=== PATIENT | female | born 1955 ===

== ENCOUNTER 2022-08-27 16:10 | Inpatient (IN) | payer MEDICARE, OTHER ==
[~2022-08-27] VITALS: Ht 162.6 cm; Wt 85.7 kg
[2022-08-27 17:00] VITALS: BP 127/77
[2022-08-27] MEDS ORDERED: MELATONIN 3 MG TABLET PO PRN (17:00)
[2022-08-27] MEDS ORDERED: ACETAMINOPHEN 325 MG TABLET PO PRN (17:00)
[2022-08-27] MEDS ORDERED: ONDANSETRON HCL 4 MG TABLET PO PRN (17:15)
[2022-08-27] MEDS ORDERED: HydrALAZINE HCL 10 MG TABLET PO PRN (17:15)
[2022-08-27] MEDS ORDERED: BISACODYL 10 MG RECTAL RECTAL SUPPOSITORY PR PRN (17:15)
[2022-08-27] MEDS ORDERED: IPRATROPIUM BROMIDE 0.5 MG/2.5 ML NEB SOLUTION NEB PRN (17:15)
[2022-08-27] MEDS ORDERED: ALBUTEROL SULFATE 2.5 MG/0.5 ML NEB SOLUTION NEB PRN (17:15)
[2022-08-27 20:00] VITALS: BP 134/75
[2022-08-27] MEDS: ETHYL ALCOHOL 62% ANTISEPTIC NASAL SANITIZER 0.6 ML AMPUL NASAL SCH (21:50)
[2022-08-27] MEDS: 0.9% SODIUM CHLORIDE 10 ML SYRINGE IVP SCH (21:50)
[2022-08-27] MEDS: DOCUSATE SODIUM 100 MG CAPSULE PO SCH (21:53)
[2022-08-28 07:26] LABS: BASOPHILS % (AUTO) 0.7 % (0.0-2.0); HEMATOCRIT 39.4 % (36-46); HEMOGLOBIN 13.2 g/dL (12.0-16.0); LYMPHOCYTES # (AUTO) 1.6 K/uL (1.0-4.8); LYMPHOCYTES % (AUTO) 25.1 % (22.0-44.0); MEAN CORPUSCULAR HEMOGLOBIN 29.1 pg (26.0-34.0); MEAN CORPUSCULAR HGB CONC 33.6 G/dL (31.0-37.0); MEAN CORPUSCULAR VOLUME 87 fL (80-100); MONOCYTES # (AUTO) 0.4 K/uL (0.1-1.0); MONOCYTES % (AUTO) 6.4 % (2.0-9.0); NEUTROPHILS # (AUTO) 4.1 K/uL (1.8-7.7); NEUTROPHILS % (AUTO) 63.8 % (40.0-70.0); PLATELET COUNT (AUTO) 273 K/uL (150-450); RED BLOOD CELL COUNT(AUTO) 4.54 MIL/uL (4.00-5.20); RED CELL DISTRIBUTION WIDTH 13.1 % (11.5-14.5)
[2022-08-28 07:46] LABS: ALANINE AMINOTRANSFERASE 26 U/L (12-78); ALKALINE PHOSPHATASE 145 U/L (46-116); ANION GAP 7 mmol/L (8-16); ASPARTATE AMINOTRANSFERASE 10 U/L (15-37); BILIRUBIN,TOTAL 0.5 mg/dL (0.1-1.0); CALCIUM, TOTAL 9.5 mg/dL (8.8-10.5); CARBON DIOXIDE 29 mmol/L (22-29); CHLORIDE 103 mmol/L (98-107); GLUCOSE,RANDOM 113 mg/dL (70-110); POTASSIUM 3.9 mmol/L (3.5-5.1); SODIUM SERUM 139 mmol/L (136-145); UREA NITROGEN, BLOOD 18 mg/dL (7-18)
[2022-08-28 07:48] LABS: GLOMERULAR FILTR. RATE CALC > 60 mL/min (>60)
[2022-08-28] MEDS: ETHYL ALCOHOL 62% ANTISEPTIC NASAL SANITIZER 0.6 ML AMPUL NASAL SCH ×2 (07:53→20:55)
[2022-08-28] MEDS: LOSARTAN POTASSIUM 50 MG TABLET PO SCH (07:54)
[2022-08-28] MEDS: ATORVASTATIN CALCIUM 40 MG TABLET PO SCH (07:54)
[2022-08-28] MEDS: PANTOPRAZOLE SODIUM 40 MG DR TABLET PO SCH (07:54)
[2022-08-28] MEDS: 0.9% SODIUM CHLORIDE 10 ML SYRINGE IVP SCH ×2 (07:54→20:55)
[2022-08-28] MEDS: DOCUSATE SODIUM 100 MG CAPSULE PO SCH ×2 (07:54→20:55)
[2022-08-28] MEDS: METOPROLOL SUCCINATE 25 MG ER TABLET PO SCH (07:54)
[2022-08-28 08:55] VITALS: BP 122/70
[2022-08-28 12:00] VITALS: BP 124/64
[2022-08-28 20:02] VITALS: BP 126/67
[2022-08-29] MEDS: ETHYL ALCOHOL 62% ANTISEPTIC NASAL SANITIZER 0.6 ML AMPUL NASAL SCH ×2 (08:32→20:22)
[2022-08-29] MEDS: ATORVASTATIN CALCIUM 40 MG TABLET PO SCH (08:33)
[2022-08-29] MEDS: METOPROLOL SUCCINATE 25 MG ER TABLET PO SCH (08:33)
[2022-08-29] MEDS: LOSARTAN POTASSIUM 50 MG TABLET PO SCH (08:33)
[2022-08-29] MEDS: PANTOPRAZOLE SODIUM 40 MG DR TABLET PO SCH (08:33)
[2022-08-29] MEDS: DOCUSATE SODIUM 100 MG CAPSULE PO SCH ×2 (08:33→20:22)
[2022-08-29 09:11] VITALS: BP 113/71
[2022-08-29 19:59] VITALS: BP 128/84
[2022-08-30 08:00] VITALS: BP 151/78
[2022-08-30 09:00] VITALS: BP 113/75
[2022-08-30] MEDS: ETHYL ALCOHOL 62% ANTISEPTIC NASAL SANITIZER 0.6 ML AMPUL NASAL SCH ×2 (09:13→21:25)
[2022-08-30] MEDS: LOSARTAN POTASSIUM 50 MG TABLET PO SCH (09:14)
[2022-08-30] MEDS: ENOXAPARIN SODIUM 40 MG/0.4 ML PF SYRINGE SQ SCH (09:14)
[2022-08-30] MEDS: METOPROLOL SUCCINATE 25 MG ER TABLET PO SCH (09:14)
[2022-08-30] MEDS: DOCUSATE SODIUM 100 MG CAPSULE PO SCH ×2 (09:14→21:00)
[2022-08-30] MEDS: PANTOPRAZOLE SODIUM 40 MG DR TABLET PO SCH (09:14)
[2022-08-30] MEDS: ATORVASTATIN CALCIUM 40 MG TABLET PO SCH (09:14)
[2022-08-30 10:23] VITALS: BP 151/78
[2022-08-30 20:15] VITALS: BP 128/73
[2022-08-31] MEDS: ATORVASTATIN CALCIUM 40 MG TABLET PO SCH (08:04)
[2022-08-31] MEDS: METOPROLOL SUCCINATE 25 MG ER TABLET PO SCH (08:04)
[2022-08-31] MEDS: LOSARTAN POTASSIUM 50 MG TABLET PO SCH (08:04)
[2022-08-31] MEDS: PANTOPRAZOLE SODIUM 40 MG DR TABLET PO SCH (08:04)
[2022-08-31] MEDS: ENOXAPARIN SODIUM 40 MG/0.4 ML PF SYRINGE SQ SCH (08:05)
[2022-08-31] MEDS: ETHYL ALCOHOL 62% ANTISEPTIC NASAL SANITIZER 0.6 ML AMPUL NASAL SCH ×2 (08:06→20:24)
[2022-08-31] MEDS: DOCUSATE SODIUM 100 MG CAPSULE PO SCH ×2 (08:19→20:24)
[2022-08-31 09:04] VITALS: BP 139/71
[2022-08-31 15:36] LABS: APPEARANCE,URINE HAZY (CLEAR); BILIRUBIN,URINE NEGATIVE (NEGATIVE); GLUCOSE, URINE (UA) NEGATIVE (NEGATIVE); KETONES,URINE NEGATIVE (NEGATIVE); LEUKOCYTE ESTERASE ,URINE LARGE (NEGATIVE); NITRATE,URINE POSITIVE (NEGATIVE); OCCULT BLOOD,URINE NEGATIVE (NEGATIVE); PH,URINE 6.5 (5.0-8.0); PROTEIN,URINE TRACE mg/dL (NEGATIVE); SPECIFIC GRAVITIY, URINE 1.013 (1.003-1.030); UROBILINOGEN,URINE <=1.0 mg/dL (<=1.0)
[2022-08-31 15:44] LABS: BACTERIA,URINE Moderate /HPF (None Seen); RBC,URINE 0-2 /HPF (0-2)
[2022-08-31 15:45] LABS: SQUAMOUS EPITHELIAL CELL,UR None Seen /LPF (None Seen)
[2022-08-31] MEDS: DOCUSATE SODIUM 283 MG/5 ML MINI-ENEMA PR SCH (18:20)
[2022-08-31 22:41] VITALS: BP 143/77
[2022-09-01] MEDS: ATORVASTATIN CALCIUM 40 MG TABLET PO SCH (07:40)
[2022-09-01] MEDS: METOPROLOL SUCCINATE 25 MG ER TABLET PO SCH (07:40)
[2022-09-01] MEDS: DOCUSATE SODIUM 100 MG CAPSULE PO SCH ×2 (07:41→20:27)
[2022-09-01] MEDS: PANTOPRAZOLE SODIUM 40 MG DR TABLET PO SCH (07:41)
[2022-09-01] MEDS: LOSARTAN POTASSIUM 50 MG TABLET PO SCH (07:41)
[2022-09-01] MEDS: ENOXAPARIN SODIUM 40 MG/0.4 ML PF SYRINGE SQ SCH (07:42)
[2022-09-01] MEDS: ETHYL ALCOHOL 62% ANTISEPTIC NASAL SANITIZER 0.6 ML AMPUL NASAL SCH ×2 (08:39→20:27)
[2022-09-01 09:05] VITALS: BP 128/83
[2022-09-01] MEDS: DOCUSATE SODIUM 283 MG/5 ML MINI-ENEMA PR SCH (18:50)
[2022-09-01 20:00] VITALS: BP 144/84
[2022-09-02 08:30] VITALS: BP 137/73
[2022-09-02 09:10] VITALS: BP 137/73
[2022-09-02] MEDS: METOPROLOL SUCCINATE 25 MG ER TABLET PO SCH (09:32)
[2022-09-02] MEDS: ETHYL ALCOHOL 62% ANTISEPTIC NASAL SANITIZER 0.6 ML AMPUL NASAL SCH ×2 (09:32→20:22)
[2022-09-02] MEDS: PANTOPRAZOLE SODIUM 40 MG DR TABLET PO SCH (09:32)
[2022-09-02] MEDS: LOSARTAN POTASSIUM 50 MG TABLET PO SCH (09:32)
[2022-09-02] MEDS: DOCUSATE SODIUM 100 MG CAPSULE PO SCH ×2 (09:33→20:23)
[2022-09-02] MEDS: ATORVASTATIN CALCIUM 40 MG TABLET PO SCH (09:33)
[2022-09-02] MEDS: ENOXAPARIN SODIUM 40 MG/0.4 ML PF SYRINGE SQ SCH (09:33)
[2022-09-02] MEDS: DOCUSATE SODIUM 283 MG/5 ML MINI-ENEMA PR SCH (19:24)
[2022-09-02 21:03] VITALS: BP 149/87
[2022-09-03] MEDS: ETHYL ALCOHOL 62% ANTISEPTIC NASAL SANITIZER 0.6 ML AMPUL NASAL SCH ×2 (08:45→20:37)
[2022-09-03] MEDS: METOPROLOL SUCCINATE 25 MG ER TABLET PO SCH (08:45)
[2022-09-03] MEDS: LOSARTAN POTASSIUM 50 MG TABLET PO SCH (08:46)
[2022-09-03] MEDS: ENOXAPARIN SODIUM 40 MG/0.4 ML PF SYRINGE SQ SCH (08:46)
[2022-09-03] MEDS: PANTOPRAZOLE SODIUM 40 MG DR TABLET PO SCH (08:46)
[2022-09-03] MEDS: ATORVASTATIN CALCIUM 40 MG TABLET PO SCH (08:46)
[2022-09-03] MEDS: DOCUSATE SODIUM 100 MG CAPSULE PO SCH ×2 (08:47→20:37)
[2022-09-03 09:15] VITALS: BP 154/76
[2022-09-03] MEDS: NITROFURANTOIN MONOHYD/M-CRYST 100 MG CAPSULE [MACROBID] PO SCH ×2 (11:32→20:37)
[2022-09-03 21:05] VITALS: BP 133/83
[2022-09-04] MEDS: DOCUSATE SODIUM 100 MG CAPSULE PO SCH ×3 (09:27→21:47)
[2022-09-04] MEDS: ETHYL ALCOHOL 62% ANTISEPTIC NASAL SANITIZER 0.6 ML AMPUL NASAL SCH ×3 (09:27→21:47)
[2022-09-04] MEDS: PANTOPRAZOLE SODIUM 40 MG DR TABLET PO SCH (09:28)
[2022-09-04] MEDS: ATORVASTATIN CALCIUM 40 MG TABLET PO SCH (09:28)
[2022-09-04] MEDS: NITROFURANTOIN MONOHYD/M-CRYST 100 MG CAPSULE [MACROBID] PO SCH ×3 (09:28→21:47)
[2022-09-04] MEDS: LOSARTAN POTASSIUM 50 MG TABLET PO SCH (09:28)
[2022-09-04] MEDS: ENOXAPARIN SODIUM 40 MG/0.4 ML PF SYRINGE SQ SCH (09:29)
[2022-09-04] MEDS: METOPROLOL SUCCINATE 25 MG ER TABLET PO SCH (09:29)
[2022-09-04 10:04] VITALS: BP 149/88
[2022-09-04 20:27] VITALS: BP 130/72
[2022-09-04] MEDS: DOCUSATE SODIUM 283 MG/5 ML MINI-ENEMA PR PRN ×2 (21:37→21:48)
[2022-09-05 08:05] VITALS: BP 122/70
[2022-09-05] MEDS: NITROFURANTOIN MONOHYD/M-CRYST 100 MG CAPSULE [MACROBID] PO SCH ×2 (08:39→20:56)
[2022-09-05] MEDS: DOCUSATE SODIUM 100 MG CAPSULE PO SCH ×2 (08:39→20:56)
[2022-09-05] MEDS: ATORVASTATIN CALCIUM 40 MG TABLET PO SCH (08:39)
[2022-09-05] MEDS: ETHYL ALCOHOL 62% ANTISEPTIC NASAL SANITIZER 0.6 ML AMPUL NASAL SCH ×2 (08:40→20:56)
[2022-09-05] MEDS: LOSARTAN POTASSIUM 50 MG TABLET PO SCH (08:40)
[2022-09-05] MEDS: METOPROLOL SUCCINATE 25 MG ER TABLET PO SCH (08:40)
[2022-09-05] MEDS: ENOXAPARIN SODIUM 40 MG/0.4 ML PF SYRINGE SQ SCH (08:42)
[2022-09-05] MEDS: PANTOPRAZOLE SODIUM 40 MG DR TABLET PO SCH (10:39)
[2022-09-05] MEDS: DOCUSATE SODIUM 283 MG/5 ML MINI-ENEMA PR SCH (18:08)
[2022-09-05 21:18] VITALS: BP 145/77
[2022-09-06] MEDS: NITROFURANTOIN MONOHYD/M-CRYST 100 MG CAPSULE [MACROBID] PO SCH ×2 (07:56→20:25)
[2022-09-06 08:05] VITALS: BP 134/73
[2022-09-06] MEDS: ENOXAPARIN SODIUM 40 MG/0.4 ML PF SYRINGE SQ SCH (08:27)
[2022-09-06] MEDS: ETHYL ALCOHOL 62% ANTISEPTIC NASAL SANITIZER 0.6 ML AMPUL NASAL SCH ×2 (08:27→20:25)
[2022-09-06] MEDS: ATORVASTATIN CALCIUM 40 MG TABLET PO SCH (08:28)
[2022-09-06] MEDS: LOSARTAN POTASSIUM 50 MG TABLET PO SCH (08:28)
[2022-09-06] MEDS: DOCUSATE SODIUM 100 MG CAPSULE PO SCH ×2 (08:28→20:25)
[2022-09-06] MEDS: METOPROLOL SUCCINATE 25 MG ER TABLET PO SCH (08:28)
[2022-09-06] MEDS: PANTOPRAZOLE SODIUM 40 MG DR TABLET PO SCH (09:56)
[2022-09-06] MEDS: DOCUSATE SODIUM 283 MG/5 ML MINI-ENEMA PR SCH (18:18)
[2022-09-06 20:10] VITALS: BP 127/62
[2022-09-07] MEDS: NITROFURANTOIN MONOHYD/M-CRYST 100 MG CAPSULE [MACROBID] PO SCH ×2 (08:00→20:44)
[2022-09-07 08:02] VITALS: BP 135/76
[2022-09-07] MEDS: DOCUSATE SODIUM 100 MG CAPSULE PO SCH ×2 (08:20→20:44)
[2022-09-07] MEDS: ATORVASTATIN CALCIUM 40 MG TABLET PO SCH (08:20)
[2022-09-07] MEDS: ETHYL ALCOHOL 62% ANTISEPTIC NASAL SANITIZER 0.6 ML AMPUL NASAL SCH ×2 (08:20→20:44)
[2022-09-07] MEDS: ENOXAPARIN SODIUM 40 MG/0.4 ML PF SYRINGE SQ SCH (08:20)
[2022-09-07] MEDS: LOSARTAN POTASSIUM 50 MG TABLET PO SCH (08:20)
[2022-09-07] MEDS: METOPROLOL SUCCINATE 25 MG ER TABLET PO SCH (08:21)
[2022-09-07] MEDS: PANTOPRAZOLE SODIUM 40 MG DR TABLET PO SCH (10:00)
[2022-09-07] MEDS: DOCUSATE SODIUM 283 MG/5 ML MINI-ENEMA PR SCH (18:25)
[2022-09-07 20:10] VITALS: BP 116/66
[2022-09-08] MEDS: METOPROLOL SUCCINATE 25 MG ER TABLET PO SCH (08:09)
[2022-09-08] MEDS: ATORVASTATIN CALCIUM 40 MG TABLET PO SCH (08:09)
[2022-09-08] MEDS: PANTOPRAZOLE SODIUM 40 MG DR TABLET PO SCH (08:09)
[2022-09-08] MEDS: ETHYL ALCOHOL 62% ANTISEPTIC NASAL SANITIZER 0.6 ML AMPUL NASAL SCH ×2 (08:09→21:30)
[2022-09-08] MEDS: LOSARTAN POTASSIUM 50 MG TABLET PO SCH (08:09)
[2022-09-08] MEDS: DOCUSATE SODIUM 100 MG CAPSULE PO SCH ×2 (08:09→21:30)
[2022-09-08] MEDS: NITROFURANTOIN MONOHYD/M-CRYST 100 MG CAPSULE [MACROBID] PO SCH ×2 (08:09→21:30)
[2022-09-08] MEDS: ENOXAPARIN SODIUM 40 MG/0.4 ML PF SYRINGE SQ SCH (08:09)
[2022-09-08 08:45] VITALS: BP 119/67
[2022-09-08] MEDS: DOCUSATE SODIUM 283 MG/5 ML MINI-ENEMA PR SCH (18:00)
[2022-09-08 21:00] VITALS: BP 135/70
[2022-09-09 07:50] VITALS: BP 131/89
[2022-09-09] MEDS: DOCUSATE SODIUM 100 MG CAPSULE PO SCH ×2 (07:57→20:22)
[2022-09-09] MEDS: ETHYL ALCOHOL 62% ANTISEPTIC NASAL SANITIZER 0.6 ML AMPUL NASAL SCH ×2 (07:57→20:22)
[2022-09-09] MEDS: ENOXAPARIN SODIUM 40 MG/0.4 ML PF SYRINGE SQ SCH (07:58)
[2022-09-09] MEDS: LOSARTAN POTASSIUM 50 MG TABLET PO SCH (07:58)
[2022-09-09] MEDS: ATORVASTATIN CALCIUM 40 MG TABLET PO SCH (07:58)
[2022-09-09] MEDS: METOPROLOL SUCCINATE 25 MG ER TABLET PO SCH (07:58)
[2022-09-09] MEDS: PANTOPRAZOLE SODIUM 40 MG DR TABLET PO SCH (07:58)
[2022-09-09] MEDS: NITROFURANTOIN MONOHYD/M-CRYST 100 MG CAPSULE [MACROBID] PO SCH ×2 (07:58→20:22)
[2022-09-09] MEDS: DOCUSATE SODIUM 283 MG/5 ML MINI-ENEMA PR SCH (18:13)
[2022-09-09 20:01] VITALS: BP 140/71
[2022-09-10 07:07] LABS: BASOPHILS % (AUTO) 0.6 % (0.0-2.0); EOSINOPHILS % (AUTO) 7.7 % (1.0-6.0); HEMOGLOBIN 12.6 g/dL (12.0-16.0); LYMPHOCYTES # (AUTO) 1.5 K/uL (1.0-4.8); LYMPHOCYTES % (AUTO) 28.2 % (22.0-44.0); MEAN CORPUSCULAR HEMOGLOBIN 28.9 pg (26.0-34.0); MEAN CORPUSCULAR VOLUME 85 fL (80-100); MONOCYTES # (AUTO) 0.3 K/uL (0.1-1.0); MONOCYTES % (AUTO) 6.6 % (2.0-9.0); NEUTROPHILS % (AUTO) 56.9 % (40.0-70.0); PLATELET COUNT (AUTO) 225 K/uL (150-450); RED BLOOD CELL COUNT(AUTO) 4.35 MIL/uL (4.00-5.20); RED CELL DISTRIBUTION WIDTH 13.2 % (11.5-14.5)
[2022-09-10 07:27] LABS: ANION GAP 4 mmol/L (8-16); CALCIUM, TOTAL 9.8 mg/dL (8.8-10.5); CARBON DIOXIDE 30 mmol/L (22-29); CHLORIDE 104 mmol/L (98-107); CREATININE 0.55 mg/dL (0.60-1.30); GLUCOSE,RANDOM 103 mg/dL (70-110); POTASSIUM 3.7 mmol/L (3.5-5.1); SODIUM SERUM 138 mmol/L (136-145); UREA NITROGEN, BLOOD 15 mg/dL (7-18)
[2022-09-10 07:28] LABS: GLOMERULAR FILTR. RATE CALC > 60 mL/min (>60)
[2022-09-10 07:45] VITALS: BP 131/73
[2022-09-10] MEDS: DOCUSATE SODIUM 100 MG CAPSULE PO SCH ×2 (07:54→20:55)
[2022-09-10] MEDS: LOSARTAN POTASSIUM 50 MG TABLET PO SCH (07:54)
[2022-09-10] MEDS: ATORVASTATIN CALCIUM 40 MG TABLET PO SCH (07:54)
[2022-09-10] MEDS: ETHYL ALCOHOL 62% ANTISEPTIC NASAL SANITIZER 0.6 ML AMPUL NASAL SCH ×2 (07:54→20:55)
[2022-09-10] MEDS: PANTOPRAZOLE SODIUM 40 MG DR TABLET PO SCH (07:55)
[2022-09-10] MEDS: METOPROLOL SUCCINATE 25 MG ER TABLET PO SCH (07:55)
[2022-09-10] MEDS: ENOXAPARIN SODIUM 40 MG/0.4 ML PF SYRINGE SQ SCH (07:55)
[2022-09-10] MEDS: NITROFURANTOIN MONOHYD/M-CRYST 100 MG CAPSULE [MACROBID] PO SCH (07:55)
[2022-09-10] MEDS: DOCUSATE SODIUM 283 MG/5 ML MINI-ENEMA PR SCH (18:00)
[2022-09-10 20:01] VITALS: BP 127/70
[2022-09-11 08:57] VITALS: BP 136/79
[2022-09-11] MEDS: DOCUSATE SODIUM 100 MG CAPSULE PO SCH ×2 (09:39→21:00)
[2022-09-11] MEDS: ATORVASTATIN CALCIUM 40 MG TABLET PO SCH (09:39)
[2022-09-11] MEDS: ENOXAPARIN SODIUM 40 MG/0.4 ML PF SYRINGE SQ SCH (09:39)
[2022-09-11] MEDS: ETHYL ALCOHOL 62% ANTISEPTIC NASAL SANITIZER 0.6 ML AMPUL NASAL SCH ×2 (09:39→20:59)
[2022-09-11] MEDS: PANTOPRAZOLE SODIUM 40 MG DR TABLET PO SCH (09:39)
[2022-09-11] MEDS: METOPROLOL SUCCINATE 25 MG ER TABLET PO SCH (09:39)
[2022-09-11] MEDS: LOSARTAN POTASSIUM 50 MG TABLET PO SCH (09:40)
[2022-09-11] MEDS: DOCUSATE SODIUM 283 MG/5 ML MINI-ENEMA PR SCH (18:00)
[2022-09-11 21:04] VITALS: BP 132/68
[2022-09-12] MEDS: DOCUSATE SODIUM 100 MG CAPSULE PO SCH ×2 (09:00→21:07)
[2022-09-12] MEDS: ETHYL ALCOHOL 62% ANTISEPTIC NASAL SANITIZER 0.6 ML AMPUL NASAL SCH ×2 (09:37→21:08)
[2022-09-12] MEDS: ENOXAPARIN SODIUM 40 MG/0.4 ML PF SYRINGE SQ SCH (09:37)
[2022-09-12] MEDS: METOPROLOL SUCCINATE 25 MG ER TABLET PO SCH (09:38)
[2022-09-12] MEDS: LOSARTAN POTASSIUM 50 MG TABLET PO SCH (09:38)
[2022-09-12] MEDS: PANTOPRAZOLE SODIUM 40 MG DR TABLET PO SCH (09:39)
[2022-09-12] MEDS: ATORVASTATIN CALCIUM 40 MG TABLET PO SCH (09:39)
[2022-09-12 10:46] VITALS: BP 127/78
[2022-09-12] MEDS ORDERED: MICONAZOLE NITRATE 100 MG VG SCH (12:30)
[2022-09-12 16:28] LABS: APPEARANCE,URINE HAZY (CLEAR); BILIRUBIN,URINE NEGATIVE (NEGATIVE); GLUCOSE, URINE (UA) NEGATIVE (NEGATIVE); KETONES,URINE NEGATIVE (NEGATIVE); LEUKOCYTE ESTERASE ,URINE LARGE (NEGATIVE); NITRATE,URINE NEGATIVE (NEGATIVE); OCCULT BLOOD,URINE SMALL (NEGATIVE); PH,URINE 6.5 (5.0-8.0); PROTEIN,URINE 30-70 mg/dL (NEGATIVE); SPECIFIC GRAVITIY, URINE 1.019 (1.003-1.030); UROBILINOGEN,URINE <=1.0 mg/dL (<=1.0)
[2022-09-12 16:48] LABS: BACTERIA,URINE Few /HPF (None Seen); SQUAMOUS EPITHELIAL CELL,UR Few /LPF (None Seen); WBC,URINE 26-50 /HPF (0-5)
[2022-09-12] MEDS: MICONAZOLE NITRATE 2% 45 GM VAGINAL CREAM VG SCH (16:55)
[2022-09-12] MEDS: DOCUSATE SODIUM 283 MG/5 ML MINI-ENEMA PR SCH (18:00)
[2022-09-12 20:00] VITALS: BP 111/61
[2022-09-13 08:20] VITALS: BP 135/80
[2022-09-13] MEDS: DOCUSATE SODIUM 100 MG CAPSULE PO SCH ×2 (09:30→20:50)
[2022-09-13] MEDS: LOSARTAN POTASSIUM 50 MG TABLET PO SCH (09:30)
[2022-09-13] MEDS: PANTOPRAZOLE SODIUM 40 MG DR TABLET PO SCH (09:30)
[2022-09-13] MEDS: ATORVASTATIN CALCIUM 40 MG TABLET PO SCH (09:30)
[2022-09-13] MEDS: METOPROLOL SUCCINATE 25 MG ER TABLET PO SCH (09:30)
[2022-09-13] MEDS: ETHYL ALCOHOL 62% ANTISEPTIC NASAL SANITIZER 0.6 ML AMPUL NASAL SCH ×2 (09:30→20:50)
[2022-09-13] MEDS: ENOXAPARIN SODIUM 40 MG/0.4 ML PF SYRINGE SQ SCH (09:30)
[2022-09-13] MEDS: MICONAZOLE NITRATE 2% 45 GM VAGINAL CREAM VG SCH (09:31)
[2022-09-13] MEDS: DOCUSATE SODIUM 283 MG/5 ML MINI-ENEMA PR SCH ×2 (18:00→20:51)
[2022-09-13 20:00] VITALS: BP 120/77
[2022-09-14 08:01] VITALS: BP 152/81
[2022-09-14] MEDS: ENOXAPARIN SODIUM 40 MG/0.4 ML PF SYRINGE SQ SCH (08:04)
[2022-09-14] MEDS: MICONAZOLE NITRATE 2% 45 GM VAGINAL CREAM VG SCH (08:04)
[2022-09-14] MEDS: ETHYL ALCOHOL 62% ANTISEPTIC NASAL SANITIZER 0.6 ML AMPUL NASAL SCH ×2 (08:04→21:48)
[2022-09-14] MEDS: PANTOPRAZOLE SODIUM 40 MG DR TABLET PO SCH (08:04)
[2022-09-14] MEDS: ATORVASTATIN CALCIUM 40 MG TABLET PO SCH (08:04)
[2022-09-14] MEDS: METOPROLOL SUCCINATE 25 MG ER TABLET PO SCH (08:04)
[2022-09-14] MEDS: DOCUSATE SODIUM 100 MG CAPSULE PO SCH ×3 (08:04→21:48)
[2022-09-14] MEDS: LOSARTAN POTASSIUM 50 MG TABLET PO SCH (08:04)
[2022-09-14] MEDS: DOCUSATE SODIUM 283 MG/5 ML MINI-ENEMA PR SCH (18:00)
[2022-09-14 20:10] VITALS: BP 135/58
[2022-09-15 08:05] VITALS: BP 131/64
[2022-09-15] MEDS: DOCUSATE SODIUM 100 MG CAPSULE PO SCH ×2 (08:58→21:00)
[2022-09-15] MEDS: LOSARTAN POTASSIUM 50 MG TABLET PO SCH (08:58)
[2022-09-15] MEDS: ETHYL ALCOHOL 62% ANTISEPTIC NASAL SANITIZER 0.6 ML AMPUL NASAL SCH ×2 (08:58→21:19)
[2022-09-15] MEDS: METOPROLOL SUCCINATE 25 MG ER TABLET PO SCH (08:58)
[2022-09-15] MEDS: ATORVASTATIN CALCIUM 40 MG TABLET PO SCH (08:58)
[2022-09-15] MEDS: ENOXAPARIN SODIUM 40 MG/0.4 ML PF SYRINGE SQ SCH (08:58)
[2022-09-15] MEDS: PANTOPRAZOLE SODIUM 40 MG DR TABLET PO SCH (08:59)
[2022-09-15] MEDS: MICONAZOLE NITRATE 2% 45 GM VAGINAL CREAM VG SCH (08:59)
[2022-09-15] MEDS: DOCUSATE SODIUM 283 MG/5 ML MINI-ENEMA PR SCH (18:15)
[2022-09-15 20:01] VITALS: BP 127/59
[2022-09-16 07:45] VITALS: BP 122/63
[2022-09-16] MEDS: DOCUSATE SODIUM 100 MG CAPSULE PO SCH ×2 (08:21→20:17)
[2022-09-16] MEDS: ETHYL ALCOHOL 62% ANTISEPTIC NASAL SANITIZER 0.6 ML AMPUL NASAL SCH ×2 (08:21→20:17)
[2022-09-16] MEDS: METOPROLOL SUCCINATE 25 MG ER TABLET PO SCH (08:22)
[2022-09-16] MEDS: ATORVASTATIN CALCIUM 40 MG TABLET PO SCH (08:22)
[2022-09-16] MEDS: MICONAZOLE NITRATE 2% 45 GM VAGINAL CREAM VG SCH (08:22)
[2022-09-16] MEDS: PANTOPRAZOLE SODIUM 40 MG DR TABLET PO SCH (08:22)
[2022-09-16] MEDS: LOSARTAN POTASSIUM 50 MG TABLET PO SCH (08:22)
[2022-09-16] MEDS: ENOXAPARIN SODIUM 40 MG/0.4 ML PF SYRINGE SQ SCH (08:22)
[2022-09-16] MEDS: DOCUSATE SODIUM 283 MG/5 ML MINI-ENEMA PR SCH (17:51)
[2022-09-16 20:01] VITALS: BP 113/60
[2022-09-17 07:30] VITALS: BP 149/76
[2022-09-17] MEDS: ETHYL ALCOHOL 62% ANTISEPTIC NASAL SANITIZER 0.6 ML AMPUL NASAL SCH ×2 (08:03→22:17)
[2022-09-17] MEDS: ENOXAPARIN SODIUM 40 MG/0.4 ML PF SYRINGE SQ SCH (08:03)
[2022-09-17] MEDS: DOCUSATE SODIUM 100 MG CAPSULE PO SCH ×2 (08:04→22:09)
[2022-09-17] MEDS: METOPROLOL SUCCINATE 25 MG ER TABLET PO SCH (08:04)
[2022-09-17] MEDS: LOSARTAN POTASSIUM 50 MG TABLET PO SCH (08:04)
[2022-09-17] MEDS: ATORVASTATIN CALCIUM 40 MG TABLET PO SCH (08:04)
[2022-09-17] MEDS: PANTOPRAZOLE SODIUM 40 MG DR TABLET PO SCH (08:05)
[2022-09-17] MEDS: MICONAZOLE NITRATE 2% 45 GM VAGINAL CREAM VG SCH (08:06)
[2022-09-17 08:30] VITALS: BP 149/76
[2022-09-17] MEDS: SULFAMETHOX/TRIMETH DS 800-160 MG/TABLET PO SCH ×2 (12:37→22:09)
[2022-09-17 14:41] LABS: APPEARANCE,URINE TURBID (CLEAR); BILIRUBIN,URINE NEGATIVE (NEGATIVE); GLUCOSE, URINE (UA) NEGATIVE (NEGATIVE); KETONES,URINE NEGATIVE (NEGATIVE); LEUKOCYTE ESTERASE ,URINE LARGE (NEGATIVE); NITRATE,URINE NEGATIVE (NEGATIVE); OCCULT BLOOD,URINE MODERATE (NEGATIVE); PH,URINE 6.5 (5.0-8.0); PROTEIN,URINE 30-70 mg/dL (NEGATIVE); SPECIFIC GRAVITIY, URINE 1.014 (1.003-1.030); UROBILINOGEN,URINE <=1.0 mg/dL (<=1.0)
[2022-09-17 14:54] LABS: WBC,URINE Full Field /HPF (0-5)
[2022-09-17 14:56] LABS: BACTERIA,URINE Many /HPF (None Seen)
[2022-09-17 14:57] LABS: RBC,URINE 0-2 /HPF (0-2)
[2022-09-17] MEDS: DOCUSATE SODIUM 283 MG/5 ML MINI-ENEMA PR SCH (18:00)
[2022-09-17 20:00] VITALS: BP 137/66
[2022-09-18 08:05] VITALS: BP 120/68
[2022-09-18] MEDS: ETHYL ALCOHOL 62% ANTISEPTIC NASAL SANITIZER 0.6 ML AMPUL NASAL SCH ×2 (08:24→21:05)
[2022-09-18] MEDS: ENOXAPARIN SODIUM 40 MG/0.4 ML PF SYRINGE SQ SCH (08:24)
[2022-09-18] MEDS: METOPROLOL SUCCINATE 25 MG ER TABLET PO SCH (08:26)
[2022-09-18] MEDS: LOSARTAN POTASSIUM 50 MG TABLET PO SCH (08:26)
[2022-09-18] MEDS: ATORVASTATIN CALCIUM 40 MG TABLET PO SCH (08:26)
[2022-09-18] MEDS: PANTOPRAZOLE SODIUM 40 MG DR TABLET PO SCH (08:26)
[2022-09-18] MEDS: SULFAMETHOX/TRIMETH DS 800-160 MG/TABLET PO SCH ×2 (08:27→21:05)
[2022-09-18] MEDS: MICONAZOLE NITRATE 2% 45 GM VAGINAL CREAM VG SCH (08:27)
[2022-09-18] MEDS: DOCUSATE SODIUM 100 MG CAPSULE PO SCH ×2 (08:27→21:05)
[2022-09-18] MEDS: DOCUSATE SODIUM 283 MG/5 ML MINI-ENEMA PR SCH (18:00)
[2022-09-18 19:30] VITALS: BP 122/72
[2022-09-19 07:45] VITALS: BP 125/70
[2022-09-19] MEDS: SULFAMETHOX/TRIMETH DS 800-160 MG/TABLET PO SCH ×2 (07:48→20:26)
[2022-09-19] MEDS: ETHYL ALCOHOL 62% ANTISEPTIC NASAL SANITIZER 0.6 ML AMPUL NASAL SCH ×2 (07:48→20:26)
[2022-09-19] MEDS: ATORVASTATIN CALCIUM 40 MG TABLET PO SCH (07:50)
[2022-09-19] MEDS: METOPROLOL SUCCINATE 25 MG ER TABLET PO SCH (07:50)
[2022-09-19] MEDS: DOCUSATE SODIUM 100 MG CAPSULE PO SCH ×2 (07:50→20:26)
[2022-09-19] MEDS: PANTOPRAZOLE SODIUM 40 MG DR TABLET PO SCH (07:50)
[2022-09-19] MEDS: LOSARTAN POTASSIUM 50 MG TABLET PO SCH (07:50)
[2022-09-19] MEDS: ENOXAPARIN SODIUM 40 MG/0.4 ML PF SYRINGE SQ SCH (07:51)
[2022-09-19] MEDS: MICONAZOLE NITRATE 2% 45 GM VAGINAL CREAM VG SCH (07:51)
[2022-09-19 09:40] VITALS: BP 107/62
[2022-09-19 10:37] VITALS: BP 107/62
[2022-09-19 14:00] VITALS: BP 106/55
[2022-09-19 17:00] VITALS: BP 100/59
[2022-09-19] MEDS: DOCUSATE SODIUM 283 MG/5 ML MINI-ENEMA PR SCH (18:00)
[2022-09-19 20:05] VITALS: BP 105/52
[2022-09-20 08:20] VITALS: BP 119/60
[2022-09-20] MEDS: PANTOPRAZOLE SODIUM 40 MG DR TABLET PO SCH (09:20)
[2022-09-20] MEDS: ENOXAPARIN SODIUM 40 MG/0.4 ML PF SYRINGE SQ SCH (09:20)
[2022-09-20] MEDS: DOCUSATE SODIUM 100 MG CAPSULE PO SCH ×2 (09:20→20:15)
[2022-09-20] MEDS: METOPROLOL SUCCINATE 25 MG ER TABLET PO SCH (09:20)
[2022-09-20] MEDS: LOSARTAN POTASSIUM 50 MG TABLET PO SCH (09:20)
[2022-09-20] MEDS: ATORVASTATIN CALCIUM 40 MG TABLET PO SCH (09:21)
[2022-09-20] MEDS: ETHYL ALCOHOL 62% ANTISEPTIC NASAL SANITIZER 0.6 ML AMPUL NASAL SCH ×2 (09:21→20:15)
[2022-09-20] MEDS: SULFAMETHOX/TRIMETH DS 800-160 MG/TABLET PO SCH ×2 (09:22→20:15)
[2022-09-20] MEDS: DOCUSATE SODIUM 283 MG/5 ML MINI-ENEMA PR SCH (18:00)
[2022-09-20 20:01] VITALS: BP 118/65
[2022-09-21] MEDS ORDERED: METO25XL PO ×2 (01:12→14:42)
[2022-09-21] MEDS ORDERED: DOCU-385 PO ×2 (01:12→14:42)
[2022-09-21] MEDS ORDERED: ATOR40TA28 PO (01:12)
[2022-09-21] MEDS ORDERED: PANT-31 PO (01:12)
[2022-09-21] MEDS ORDERED: SULF-261 PO ×2 (01:12→14:42)
[2022-09-21] MEDS ORDERED: LOSA-382 PO ×2 (01:12→14:42)
[2022-09-21 07:37] LABS: BASOPHILS % (AUTO) 0.8 % (0.0-2.0); EOSINOPHILS % (AUTO) 5.5 % (1.0-6.0); HEMATOCRIT 38.9 % (36-46); HEMOGLOBIN 13.3 g/dL (12.0-16.0); LYMPHOCYTES # (AUTO) 1.7 K/uL (1.0-4.8); LYMPHOCYTES % (AUTO) 32.8 % (22.0-44.0); MEAN CORPUSCULAR HEMOGLOBIN 29.4 pg (26.0-34.0); MEAN CORPUSCULAR HGB CONC 34.1 G/dL (31.0-37.0); MEAN CORPUSCULAR VOLUME 86 fL (80-100); MONOCYTES # (AUTO) 0.4 K/uL (0.1-1.0); MONOCYTES % (AUTO) 7.6 % (2.0-9.0); NEUTROPHILS # (AUTO) 2.8 K/uL (1.8-7.7); NEUTROPHILS % (AUTO) 53.3 % (40.0-70.0); PLATELET COUNT (AUTO) 233 K/uL (150-450); RED BLOOD CELL COUNT(AUTO) 4.51 MIL/uL (4.00-5.20); RED CELL DISTRIBUTION WIDTH 13.1 % (11.5-14.5)
[2022-09-21 07:50] VITALS: BP 138/71
[2022-09-21 07:50] LABS: ANION GAP 5 mmol/L (8-16); CALCIUM, TOTAL 10.2 mg/dL (8.8-10.5); CARBON DIOXIDE 28 mmol/L (22-29); CHLORIDE 104 mmol/L (98-107); CREATININE 0.65 mg/dL (0.60-1.30); GLUCOSE,RANDOM 107 mg/dL (70-110); POTASSIUM 4.3 mmol/L (3.5-5.1); SODIUM SERUM 137 mmol/L (136-145); UREA NITROGEN, BLOOD 18 mg/dL (7-18)
[2022-09-21 07:51] LABS: GLOMERULAR FILTR. RATE CALC > 60 mL/min (>60)
[2022-09-21] MEDS: ETHYL ALCOHOL 62% ANTISEPTIC NASAL SANITIZER 0.6 ML AMPUL NASAL SCH ×2 (08:16→20:33)
[2022-09-21] MEDS: SULFAMETHOX/TRIMETH DS 800-160 MG/TABLET PO SCH ×2 (08:17→20:33)
[2022-09-21] MEDS: PANTOPRAZOLE SODIUM 40 MG DR TABLET PO SCH (08:17)
[2022-09-21] MEDS: LOSARTAN POTASSIUM 50 MG TABLET PO SCH (08:17)
[2022-09-21] MEDS: METOPROLOL SUCCINATE 25 MG ER TABLET PO SCH (08:17)
[2022-09-21] MEDS: DOCUSATE SODIUM 100 MG CAPSULE PO SCH ×2 (08:17→20:34)
[2022-09-21] MEDS: ATORVASTATIN CALCIUM 40 MG TABLET PO SCH (08:17)
[2022-09-21] MEDS: ENOXAPARIN SODIUM 40 MG/0.4 ML PF SYRINGE SQ SCH (08:18)
[2022-09-21] MEDS ORDERED: FAMO-136 PO (14:42)
[2022-09-21] MEDS ORDERED: ATOR40TA71 PO (14:42)
[2022-09-21] MEDS: DOCUSATE SODIUM 283 MG/5 ML MINI-ENEMA PR SCH (18:00)
[2022-09-21 20:30] VITALS: BP 102/62
[2022-09-22 08:05] VITALS: BP 139/72
[2022-09-22] MEDS: PANTOPRAZOLE SODIUM 40 MG DR TABLET PO SCH (08:50)
[2022-09-22] MEDS: ATORVASTATIN CALCIUM 40 MG TABLET PO SCH (08:50)
[2022-09-22] MEDS: DOCUSATE SODIUM 100 MG CAPSULE PO SCH (08:50)
[2022-09-22] MEDS: METOPROLOL SUCCINATE 25 MG ER TABLET PO SCH (08:50)
[2022-09-22] MEDS: SULFAMETHOX/TRIMETH DS 800-160 MG/TABLET PO SCH (08:50)
[2022-09-22] MEDS: ETHYL ALCOHOL 62% ANTISEPTIC NASAL SANITIZER 0.6 ML AMPUL NASAL SCH (08:50)
[2022-09-22] MEDS: ENOXAPARIN SODIUM 40 MG/0.4 ML PF SYRINGE SQ SCH (08:51)
[2022-09-22] MEDS ORDERED: LOSARTAN POTASSIUM 25 MG TABLET PO SCH (09:00)
== END 2022-09-22 16:45 | disposition home health service (06) | DRG 57 ==
LOC: 2WR 16:10
PROVIDERS: ADMIT Physical Medicine & Rehabilitation; ATTEND Physical Medicine & Rehabilitation
DX: G81.91 Hemiplegia, unspecified affecting right dominant side (principal); I62.9 Nontraumatic intracranial hemorrhage, unspecified; E46 Unspecified protein-calorie malnutrition; K59.2 Neurogenic bowel, not elsewhere classified; R47.01 Aphasia; E66.9 Obesity, unspecified; E03.9 Hypothyroidism, unspecified; B96.20 Unspecified Escherichia coli [E. coli] as the cause of diseases classified elsewhere; I10 Essential (primary) hypertension; E78.5 Hyperlipidemia, unspecified; N31.9 Neuromuscular dysfunction of bladder, unspecified; R48.2 Apraxia; K59.00 Constipation, unspecified; R47.1 Dysarthria and anarthria; R13.10 Dysphagia, unspecified; Z87.440 Personal history of urinary (tract) infections; Z86.73 Personal history of transient ischemic attack (TIA), and cerebral infarction without residual deficits; Z68.32 Body mass index [BMI] 32.0-32.9, adult; Z88.0 Allergy status to penicillin; Z91.041 Radiographic dye allergy status
CPT/HCPCS: 80048; 80053; 81001; 81003; 85025; 87081; 87086; 87186; 92507; 92523; 92526; 93970; 97110; 97112; 97116; 97150; 97163; 97167; 97530; 97535; 99366; J1650